=== PATIENT | male | born 1995 | race Two or more races ===

== ENCOUNTER 2021-09-11 11:41 | Emergency (ER) | payer OTHER ==
[~2021-09-11] VITALS: Ht 170.2 cm; Wt 66.2 kg
[2021-09-11 11:46] VITALS: BP 136/80
[2021-09-11] MEDS ORDERED: IBUP-1957 PO (12:13)
[2021-09-11] MEDS ORDERED: CYCL10TA9 PO (12:13)
[2021-09-11] MEDS ORDERED: KETOROLAC TROMETHAMINE INJ 30 MG/ML VIAL ONE (12:25)
[2021-09-11] MEDS ORDERED: CYCLOBENZAPRINE 10 MG TABLET ONE (12:25)
[2021-09-11] MEDS ORDERED: KETOROLAC TROMETHAMINE INJ 60 MG/2 ML VIAL IM ONE (12:30)
[2021-09-11] MEDS ORDERED: CYCLOBENZAPRINE 10 MG TABLET PO ONE (12:30)
--- NOTE | 2021-09-11 12:33 | NUR ---
Patient discharged to home in stable condition. Written and verbal after care instructions given. Patient verbalizes understanding of instruction.
== END 2021-09-11 12:33 | disposition home or self-care (01) ==
LOC: ER 12:02
DX: M62.838 Other muscle spasm (principal)
CPT/HCPCS: 96372; 99283; J1885

== ENCOUNTER 2022-02-25 23:36 | Emergency (ER) | payer OTHER ==
[~2022-02-25] VITALS: Ht 172.7 cm; Wt 63.5 kg
[~2022-02-25 23:36] MED LIST: CYCL10TA9 PO; IBUP-1957 PO
[2022-02-25 23:56] VITALS: BP 124/71
[2022-02-26] MEDS ORDERED: IBUPROFEN 400 MG TABLET ONE (00:08)
--- NOTE | 2022-02-26 00:10 | NUR ---
Patient discharged to home in stable condition. Written and verbal after care instructions given. Patient verbalizes understanding of instruction.
[2022-02-26] MEDS ORDERED: IBUPROFEN 400 MG TABLET PO ONE (00:30)
== END 2022-02-26 00:19 | disposition home or self-care (01) ==
LOC: ER 23:37
DX: M62.838 Other muscle spasm (principal); Z79.899 Other long term (current) drug therapy; V89.2XXA Person injured in unspecified motor-vehicle accident, traffic, initial encounter; Y93.89 Activity, other specified; Y92.89 Other specified places as the place of occurrence of the external cause; Y99.8 Other external cause status

== ENCOUNTER 2022-03-31 10:31 | Emergency (ER) | payer OTHER ==
[~2022-03-31] VITALS: Ht 170.2 cm; Wt 66.2 kg
[2022-03-31 10:31] VITALS: BP 137/73
--- NOTE | 2022-03-31 10:31 | NUR ---
BIBS C/O LEFT ANKLE PAIN WHILE PLAYING SOCCER LAST NIGHT. 9/10 PAIN SCALE
--- NOTE | 2022-03-31 11:14 | NUR ---
X RAY STATED PT IS NO LONGER IN THE ROOM, PT MD LORRI NOTIFIED
== END 2022-03-31 11:21 | disposition left against medical advice (07) ==
LOC: ER 10:36
DX: Z53.21 Procedure and treatment not carried out due to patient leaving prior to being seen by health care provider (principal)